=== PATIENT | male | born 1995 | race Native Hawaiian/Other Pacific Islander ===

== ENCOUNTER 2016-07-06 | Outpatient (CLI) | payer OTHER | END 2016-07-06 01:04 | disposition critical access hospital (66) | CPT/HCPCS: A0425; A0429 ==

== ENCOUNTER 2016-07-06 01:51 | Emergency (ER) | payer OTHER ==
[2016-07-06] MEDS ORDERED: LIDOCAINE 1%-EPI 1:100000 20 ML MDV ONE (02:10)
== END 2016-07-06 03:25 | disposition home or self-care (01) ==
DX: S01.81XA Laceration without foreign body of other part of head, initial encounter (principal); S01.111A Laceration without foreign body of right eyelid and periocular area, initial encounter; V48.1XXA Car passenger injured in noncollision transport accident in nontraffic accident, initial encounter